=== PATIENT | female | born 1990 | race Caucasian/White ===

== ENCOUNTER 2017-01-04 22:50 | Emergency (ER) | payer OTHER, SELFPAY ==
--- NOTE | 2017-01-05 08:34 | RAD ---
RIGHT HAND 3 VIEWS: Date: 01/04/17 INDICATION: Injury, pain. FINDINGS: There is a remote fracture deformity of the fifth metacarpal. Otherwise, no acute fracture or disloc ation. No radiopaque foreign body. IMPRESSION: 1. No acute abnormality. 2. 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 POS: [facility]
== END 2017-01-05 00:08 ==
LOC: BURERS 22:50
DX: S60.221A Contusion of right hand, initial encounter (principal); F31.9 Bipolar disorder, unspecified; F41.9 Anxiety disorder, unspecified; W22.8XXA Striking against or struck by other objects, initial encounter

== ENCOUNTER 2018-10-25 20:48 | Emergency (ER) | payer OTHER, SELFPAY ==
[2018-10-25 21:24] LABS: Bilirubin Negative (Negative); Blood, Urine Negative (Negative); Clarity Clear (Clear); Glucose, Urine (Dipstick) Negative (Negative); Leukocyte Negative (Negative); Nitrite Negative (Negative); Protein, Urine (Dipstick) Negative (Neg-Trace); Specific Gravity, Urine 1.015 (1.005-1.030); Urobilinogen 0.2 mg/dL (0.2-1.0); pH, Urine 8.5 (5.0-9.0)
[2018-10-25 21:29] LABS: #Basophils 0.1 thou/uL (0.0-0.2); #Eosinphils 0.1 thou/uL (0.0-0.7); #Lymphocytes 3.1 thou/uL (1.20-3.40); #Monocytes 0.8 thou/uL (0.11-0.59); #Neutrophils 4.1 thou/uL (1.40-6.50); %Basophils 0.7 % (0.0-1.0); %Eosinophils 1.5 % (0.0-10.0); %Lymphocytes 37.8 % (21.0-51.0); %Monocytes 9.4 % (0.0-10.0); %Neutrophils 50.6 % (42.0-75.0); Hemoglobin 14.4 g/dL (12.0-16.0); Mean Corpuscular HGB CONC 33.1 g/dL (32.0-36.0); Mean Corpuscular Hemoglobin 30.2 pg (27.0-31.0); Mean Corpuscular Volume 91.2 fL (78.0-98.0); Mean Platelet Volume 9.5 fL (7.4-10.4); Platelet Count 193 thou/uL (130-400); RBC Distribution Width 11.7 % (11.5-14.5); Red Blood Cell (RBC) Count 4.77 mill/uL (4.20-5.40); White Blood Cell (WBC) Count 8.2 thou/uL (4.8-10.8)
[2018-10-25 21:42] LABS: ALT (SGPT) 20 U/L (8-55); AST (SGOT) 17 U/L (5-34); Albumin 4.7 g/dL (3.5-5.0); Alkaline Phosphatase 70 U/L (40-150); Anion Gap 13 mmol/L (10-20); BUN (Urea Nitrogen) 9 mg/dL (7.0-18.7); Bilirubin, Total 1.1 mg/dL (0.2-1.2); Calc. Creatinine Clearance 0 mL/min (70-130); Calcium 9.9 mg/dL (7.8-10.44); Carbon Dioxide 26 mmol/L (22-29); Chloride 104 mmol/L (98-107); Estimated GFR-MDRD 79; Glucose 95 mg/dL (70-105); Protein, Total 7.7 g/dL (6.0-8.3); Sodium 139 mmol/L (136-145)
--- NOTE | 2018-10-25 21:45 | CT ---
CT ABDOMEN AND PELVIS WITHOUT CONTRAST 10/25/[address] of the abdomen and pelvis was done with no oral or IV contrast. We understood there was a h istory of iodine allergy, thus the reason for no contrast. Axial slices were acquired, then coronal a nd sagittal reconstructions were done. The lung bases are clear. The liver, spleen, pancreas, gallbladder, adrenal glands, kidneys and abdom inal aorta all appeared normal within the limitations of a noncontrast study. No mass, calcification or hydronephrosis was seen in either kidney. The bowel showed no distention or bowel wall thickening. There is no inflammatory change around bowel . The appendix is identified and appears normal. There were perhaps a few more nodes than usual in th e mesentery but they were not enough or large enough to confidently suggest mesenteric adenitis. The single largest node was 1.3 cm in size near the root of the mesentery, but most were considerably sma ller than this. No free air or free fluid was seen. CT of the pelvis showed no adnexal masses or cystic changes. No inflammatory changes were seen in the pelvis. There may be a trace of fluid in the cul-de-sac on the right side, but the amount could easi ly be physiologic. There were no acute bony findings in the pelvis. IMPRESSION: No acute abdominal or pelvic findings to explain the patient's right lower quadrant pain. POS: [facility]
[2018-10-25] MEDS ORDERED: Phenazopyridine HCl 97.5 MG TABLET ONE (21:58)
== END 2018-10-25 22:03 | disposition home or self-care (01) ==
LOC: BURERS 20:48
DX: R35.0 Frequency of micturition (principal); F41.9 Anxiety disorder, unspecified; F31.9 Bipolar disorder, unspecified
CPT/HCPCS: 74176; 80053; 81003; 85025

== ENCOUNTER 2019-04-01 22:08 | Emergency (ER) | payer SELFPAY ==
[2019-04-01] MEDS ORDERED: Bicillin LA 1.2 MILLION UNITS/2 ML SYRINGE ONE (22:32)
== END 2019-04-01 22:44 | disposition home or self-care (01) ==
LOC: BURERS 22:08
DX: J02.0 Streptococcal pharyngitis (principal); F41.9 Anxiety disorder, unspecified; F31.9 Bipolar disorder, unspecified
CPT/HCPCS: 96372; 99283; J0561

== ENCOUNTER 2019-07-13 22:50 | Emergency (ER) | payer SELFPAY ==
[2019-07-13] MEDS ORDERED: Ketorolac Tromethamine 60 MG/2 ML VIAL ONE (23:13)
[2019-07-13] MEDS ORDERED: traMADol HCl 50 MG TAB ONE (23:13)
[2019-07-13] MEDS ORDERED: Cyclobenzaprine 10 MG TAB ONE (23:13)
== END 2019-07-13 23:20 | disposition home or self-care (01) ==
LOC: BURERS 22:50
DX: M62.830 Muscle spasm of back (principal); F41.9 Anxiety disorder, unspecified; F31.9 Bipolar disorder, unspecified; X50.0XXA Overexertion from strenuous movement or load, initial encounter
CPT/HCPCS: 96372; 99283; J1885

== ENCOUNTER 2019-09-28 22:36 | Emergency (ER) | payer SELFPAY ==
[2019-09-28] MEDS ORDERED: Ketorolac Tromethamine 60 MG/2 ML VIAL ONE (23:04)
[2019-09-28] MEDS ORDERED: Amoxicillin/Potassium Clav 875 MG TAB ONE (23:04)
== END 2019-09-28 23:15 | disposition home or self-care (01) ==
LOC: BURERS 22:36
DX: K03.81 Cracked tooth (principal); K02.9 Dental caries, unspecified; F41.9 Anxiety disorder, unspecified; F31.9 Bipolar disorder, unspecified; Z79.899 Other long term (current) drug therapy
CPT/HCPCS: 96372; 99283; J1885

== ENCOUNTER 2019-10-19 16:54 | Emergency (ER) | payer SELFPAY ==
--- NOTE | 2019-10-19 17:37 | RAD ---
LEFT HAND THREE VIEWS: Date: 10-19-2019 FINDINGS: No acute fracture was appreciated. The bones and joints all appeared intact. The carpal bones appear normal as well. IMPRESSION: No acute bony findings. POS: [facility]
== END 2019-10-19 17:28 | disposition home or self-care (01) ==
LOC: BURERS 16:54
DX: S60.222A Contusion of left hand, initial encounter (principal); S60.312A Abrasion of left thumb, initial encounter; F41.9 Anxiety disorder, unspecified; F31.9 Bipolar disorder, unspecified; W23.0XXA Caught, crushed, jammed, or pinched between moving objects, initial encounter

== ENCOUNTER 2020-11-18 21:16 | Emergency (ER) | payer SELFPAY ==
[2020-11-18 21:45] LABS: Bilirubin Negative (Negative); Blood, Urine Negative (Negative); Clarity Clear (Clear); Glucose, Urine (Dipstick) Negative (Negative); Ketone, Urine 15 mg/dL (Negative); Leukocyte Negative (Negative); Nitrite Negative (Negative); Protein, Urine (Dipstick) Negative (Neg-Trace)
[2020-11-18 21:48] LABS: Pregnancy Test - Urine (BHCG) Negative (Negative); Pregu Control Background? CLEAR/WHITE (CLR/WHITE); Pregu Control Bar Appear? YES (CONTROL BAR)
[2020-11-18] MEDS ORDERED: Ketorolac Tromethamine 30 MG/ML VIAL ONE (22:53)
== END 2020-11-18 23:43 | disposition home or self-care (01) ==
LOC: BURERS 21:16
DX: N83.209 Unspecified ovarian cyst, unspecified side (principal); F17.290 Nicotine dependence, other tobacco product, uncomplicated
CPT/HCPCS: 36415; 74176; 81003; 81025; 84702; 96372; J1885

== ENCOUNTER 2021-02-28 12:01 | Emergency (ER) | payer SELFPAY ==
[2021-02-28] MEDS ORDERED: Ketorolac Tromethamine 30 MG/ML VIAL ONE (12:37)
[2021-02-28] MEDS ORDERED: Ondansetron PF 4 MG/2 ML Vial ONE (12:37)
[2021-02-28 13:02] LABS: #Basophils 0.1 thou/uL (0.0-0.2); #Lymphocytes 1.9 thou/uL (1.20-3.40); #Monocytes 0.4 thou/uL (0.11-0.59); #Neutrophils 5.5 thou/uL (1.40-6.50); %Basophils 0.7 % (0.0-1.0); %Eosinophils 0.1 % (0.0-10.0); %Lymphocytes 23.7 % (21.0-51.0); %Monocytes 4.8 % (0.0-10.0); %Neutrophils 70.7 % (42.0-75.0); Mean Corpuscular HGB CONC 33.8 g/dL (32.0-36.0); Mean Corpuscular Hemoglobin 30.9 pg (27.0-31.0); Mean Corpuscular Volume 91.5 fL (78.0-98.0); Mean Platelet Volume 9.3 fL (7.4-10.4); Platelet Count 254 thou/uL (130-400); RBC Distribution Width 11.2 % (11.5-14.5); Red Blood Cell (RBC) Count 5.49 mill/uL (4.20-5.40); White Blood Cell (WBC) Count 7.8 thou/uL (4.8-10.8)
[2021-02-28 13:04] LABS: Bilirubin Small (Negative); Blood, Urine Negative (Negative); Clarity Clear (Clear); Glucose, Urine (Dipstick) Negative (Negative); Ketone, Urine 80 mg/dL (Negative); Leukocyte Negative (Negative); Nitrite Negative (Negative); Protein, Urine (Dipstick) Trace mg/dL (Neg-Trace); Specific Gravity, Urine 1.025 (1.005-1.030); Urobilinogen 0.2 mg/dL (Less than 2); pH, Urine 5.5 (5.0-9.0)
[2021-02-28 13:14] LABS: Pregnancy Test - Urine (BHCG) Negative (Negative); Pregu Control Background? CLEAR/WHITE (CLR/WHITE); Pregu Control Bar Appear? YES (CONTROL BAR); Specific Gravity 1.025 (1.002-1.036)
[2021-02-28 13:15] LABS: ALT (SGPT) 12 U/L (8-55); AST (SGOT) 13 U/L (5-34); Albumin 4.9 g/dL (3.5-5.0); Alkaline Phosphatase 88 U/L (40-110); Anion Gap 17 mmol/L (10-20); BUN (Urea Nitrogen) 14 mg/dL (7.0-18.7); Bilirubin, Total 2.7 mg/dL (0.2-1.2); Calc. Creatinine Clearance 0 mL/min (70-130); Calcium 10.1 mg/dL (7.8-10.44); Carbon Dioxide 25 mmol/L (22-29); Chloride 106 mmol/L (98-107); Globulin 3.4 g/dL (2.4-3.5); Glucose 114 mg/dL (70-105); Potassium 3.6 mmol/L (3.5-5.1); Protein, Total 8.3 g/dL (6.0-8.3); Sodium 144 mmol/L (136-145)
[2021-02-28 13:16] LABS: Amphetamine Detected (NotDetected); Barbiturates Screen Not Detected (NotDetected); Benzodiazepine Screen Not Detected (NotDetected); Cocaine Metabolite Screen Not Detected (NotDetected); Medtox Control Line Valid? VALID (VALID); Methadone Not Detected (NotDetected); Methamphetamine Not Detected (NotDetected); Opiate Screen Not Detected (NotDetected); Oxycodone Screen Not Detected (NotDetected); Phencyclidine (PCP) Not Detected (NotDetected); THC/Cannabinoid Screen Detected (NotDetected); Tricyclic Screen Not Detected (NotDetected)
[2021-02-28 13:47] LABS: SARS-CoV-2 NAA Rapid Test Not Detected (NotDetected)
== END 2021-02-28 14:07 | disposition home or self-care (01) ==
LOC: BURERS 12:01
DX: A08.4 Viral intestinal infection, unspecified (principal); F12.10 Cannabis abuse, uncomplicated; Z20.822 Contact with and (suspected) exposure to COVID-19; F17.290 Nicotine dependence, other tobacco product, uncomplicated
CPT/HCPCS: 0240U; 80053; 80306; 81003; 81025; 85025; 96374; 96375; J1885; J2405